=== PATIENT | female | born 2005 ===

== ENCOUNTER 2024-02-24 11:00 | Emergency (ER) | payer BC, OTHER ==
[2024-02-24] MEDS ORDERED: Sodium Chloride 0.9% 10 ML Syringe FLUSH PRN (11:24)
[2024-02-24] MEDS ORDERED: Lactulose Soln 10 GM/15 ML 30 ML UD Cup PO ONE (12:12)
== END 2024-02-24 12:25 | disposition home or self-care (01) ==
LOC: DL.ED 11:00
DX: K59.00 Constipation, unspecified (principal)
CPT/HCPCS: 74018; 99283; 99284